=== PATIENT | male | born 1940 | race Caucasian/White ===

== ENCOUNTER → 2017-07-22 | Outpatient (CLI) | payer MEDICARE, OTHER ==
[~2017-07-22] MED LIST: ASP325 PO; ASPI-816 PO; ASPI81TA60 PO; ATOR40TA69 PO; BENA20TA62 PO; CAPS60CR TP; CARBATROL 200 MG; CHOL10005 PO; CYA1000 PO; DOCU-416 PO; DOXA2TAB58 PO; ESOM40CA42 PO; EZET1TAB81 PO; FLU IM; FLU180SY9 IM; FLU45SYR17 IM; FLU45SYR25 IM ONLY; FLU60VIA21 IM ONLY; GAB100 PO; GABA-503 PO; GABA-506 PO; GABA-547 PO; GABA-549 PO; GABA-551 PO; GLUC500C29 PO; HYDR-385 PO; LACT10SO82 PO; LOSA100T67 PO; LOSA50TA73 PO; MELO-207 PO; MESA400T PO; METO25TA93 PO; METO50TA19 PO; MULT1TAB64 PO; OMEG-36 PO; OXYC-865 PO; PANT40TA65 PO; PNEI IJ; PNEU0.5D3 IM; POLY500P2 PO; TAMS0.4C70 PO; TRAM-420 PO; TRI05T TOP; TRIA5T TOP; TRIA80OI13 TP; VAL250 PO; VALA100062 PO
[2017-07-22 09:58] LABS: PLATELET COUNT, AUTOMATED 205 K/uL (150-450)
== END ==
LOC: LAB 09:19
PROVIDERS: ATTEND Internal Medicine
DX: I12.9 Hypertensive chronic kidney disease with stage 1 through stage 4 chronic kidney disease, or unspecified chronic kidney disease (principal); I25.10 Atherosclerotic heart disease of native coronary artery without angina pectoris; N18.9 Chronic kidney disease, unspecified; D64.9 Anemia, unspecified; E78.00 Pure hypercholesterolemia, unspecified; E55.9 Vitamin D deficiency, unspecified; E53.8 Deficiency of other specified B group vitamins
CPT/HCPCS: 36415; 81001; 82040; 82247; 82306; 82310; 82374; 82435; 82565; 82607; 82728; 82746; 82947; 83540; 83550; 84075; 84132; 84155; 84295; 84443; 84450; 84460; 84520; 85025

== ENCOUNTER → 2017-10-24 | Outpatient (CLI) | payer MEDICARE, OTHER ==
[~2017-10-24] MED LIST changes: -ASPI-816 PO; +ASPI-870 PO; +DIPH0.5D12 IM; +METO25TA23 PO; +MOM PO
--- NOTE | 2017-10-24 09:39 | EKG ---
FACILITY: [facility] - [place] PATIENT NAME: BECCA SANTAMARIA : [id number] MR: [id number] V: [id number] EXAM DATE: ORDERING PHYSICIAN: NIURKA OZUNA TECHNOLOGIST: REN Test Reason : SOB Blood Pressure : / mmHG Vent. Rate : 047 BPM Atrial Rate : 047 BPM P-R Int : 194 ms QRS Dur : 144 ms QT Int : 474 ms P-R-T Axes : 076 -72 000 degrees QTc Int : 419 ms Sinus bradycardia Left axis deviation Right bundle branch block Abnormal ECG When compared with ECG of 19-MAY-2016 16:00, Previous ECG has undetermined rhythm, needs review T wave amplitude has decreased in Anterior leads Referred By: Confirmed By:
== END ==
LOC: RESP 09:27
PROVIDERS: ATTEND Internal Medicine
DX: I45.10 Unspecified right bundle-branch block (principal); R00.1 Bradycardia, unspecified

== ENCOUNTER → 2017-10-27 | Outpatient (CLI) | payer MEDICARE, OTHER ==
[2017-10-27 08:48] LABS: PLATELET COUNT, AUTOMATED 218 K/uL (150-450)
--- NOTE | 2017-10-27 10:00 | RADIOLOGY IMAGING REPORT ---
FACILITY: [facility] - [place] PATIENT NAME: Zeke Fowler : 1940 MR: [id number] V: [id number] EXAM DATE: ORDERING PHYSICIAN: NIURKA OZUNA TECHNOLOGIST: Location: [facility] - [place] Patient: Zeke Fowler : 1940 Visit/Account:[id number] Date of Sevice: 10/27/2017 Technique: CERVICAL SPINE 2 OR 3 VIEW HISTORY: neck pain Comparison studies: None FINDINGS: There is no acute fracture. Advanced degenerative changes are noted within the cervical sp ine most pronounced within the mid and lower cervical spine. These findings are characterized by int ervertebral disc space narrowing, endplate osteophytosis and sclerosis. The vertebral body heights a re maintained. No prevertebral soft tissue swelling. IMPRESSION: 1. Moderate to advanced degenerative changes within the cervical spine. Report Dictated By: Peter Day DO at 10/27/2017 9:54 AM Report E-Signed By: Peter Day DO at 10/27/2017 9:57 AM WSN:[email or web address]
== END ==
LOC: RAD 08:21
PROVIDERS: ATTEND Internal Medicine
DX: Z12.5 Encounter for screening for malignant neoplasm of prostate (principal); D64.9 Anemia, unspecified; I25.10 Atherosclerotic heart disease of native coronary artery without angina pectoris; I12.9 Hypertensive chronic kidney disease with stage 1 through stage 4 chronic kidney disease, or unspecified chronic kidney disease; N18.9 Chronic kidney disease, unspecified; M54.2 Cervicalgia; E78.00 Pure hypercholesterolemia, unspecified; E53.8 Deficiency of other specified B group vitamins; E55.9 Vitamin D deficiency, unspecified; M47.892 Other spondylosis, cervical region
CPT/HCPCS: 36415; 72040; 81001; 82607; 82728; 83540; 83550; 84443; 85025; G0103; 82040; 82247; 82310; 82374; 82435; 82465; 82565; 82947; 83718; 84075; 84132; 84153; 84155; 84295; 84450; 84460; 84478; 84520

== ENCOUNTER 2017-12-02 00:33 | Day surgery (SDC) | payer MEDICARE, OTHER ==
[2017-12-02] VITALS (7 sets, daily range): BP systolic 111–143; BP diastolic 68–87
[~2017-12-02] VITALS: Ht 175.3 cm; Wt 73.0 kg
[~2017-12-02 00:33] MED LIST changes: +HYDR30CR10 TP
[2017-12-02] MEDS ORDERED: NORMOSOL R SOLN(*) 1000 ML BAG 1,000 ML IV PRN (07:40)
[2017-12-02] MEDS ORDERED: LIDOCAINE/SOD BICARB 8.4% SYR ID ONE (07:40)
--- NOTE | 2017-12-02 07:40 | Post Operative Progress Note ---
Post Operative Progress Note Date: Dec 02, 2017 Time: 08:42 Surgeon: merritt Anesthesia: dr gutierrez Pre-Op Diagnosis: screening colonoscopy Post-Op Diagnosis: 1 cm polyp in cecum and sigmoid diverrticulosis Procedure(s): colonoscopy and polypectomy SOCORRO AGYLE MD Dec 02, 2017 07:40
--- NOTE | 2017-12-02 07:40 | Short(Outpt) Discharge Summary ---
Discharge Summary Reason for Hosp/Final Diag: (1) Encounter for screening colonoscopy Hospital Course & Plan: 1 cm polyp in cecum and sigmoid diverticulosis Departure Discharge to: Home Discharge Instructions Home Meds Active Scripts Metoprolol Succinate (METOPROLOL SUCCINATE) 25 Mg Tab.er.24h, 1 TAB PO QDAY, # 90 TAB 1 Refill Prov:NIURKA OZUNA MD 10/28/17 Oxycodone Hcl/Acetaminophen (PERCOCET 5-325 MG TABLET) 1 Each Tablet, 1 EACH PO QID Y for PAIN, #120 TAB REFILL ON OR AFTER Prov:NIURKA OZUNA MD 10/24/17 Atorvastatin Calcium (ATORVASTATIN CALCIUM) 40 Mg Tablet, 1 TAB PO QHS, #90 TAB 3 Refills TAKE ONE TABLET BY MOUTH ONCE A DAY AT BED TIME Prov:NIURKA OZUNA MD 07/31/17 Gabapentin (GABAPENTIN) 800 Mg Tablet, 0.5 TAB PO QDAY, #90 TAB Prov:NIURKA OZUNA MD 07/22/17 Triamcinolone Acetonide 0.025% (TRIAMCINOLONE ACETONIDE 0.025%) 15 Gm Cr, 1 EDWARD TOP BID Y for ezema, #3 TUBE 1 Refill Prov:NIURKA OZUNA MD 07/16/17 Doxazosin Mesylate (DOXAZOSIN MESYLATE) 2 Mg Tablet, 1 TAB PO QHS, #90 TAB 2 Refills Prov:NIURKA OZUNA MD 06/30/17 Losartan Potassium (LOSARTAN POTASSIUM) 100 Mg Tablet, 0.5 TAB PO QDAY, #90 TAB Prov:NIURKA OZUNA MD 04/10/17 Pantoprazole Sodium (PANTOPRAZOLE SODIUM) 40 Mg Tablet.dr, 1 TAB PO QDAY, #90 TAB.SR 1 Refill Prov:NIURKA OZUNA MD 11/26/16 Docusate Sodium (COLACE) 100 Mg Capsule, 1 CAP PO BID, #180 CAPSULE 4 Refills Prov:NIURKA OZUNA MD 10/09/16 Reported Medications Magnesium Hydroxide (MILK OF MAGNESIA) 400 Mg/5 Ml Oral.susp, 400 MG PO QDAY Y for constipation, BOTTLE 10/24/17 Cyanocobalamin (Vitamin B-12) (VITAMIN B-12) 1,000 Mcg Tablet, 1 TAB PO QDAY 08/14/15 Multivitamin (MULTI VITAMIN DAILY) 1 Each Tablet, 1 TAB PO QDAY 06/29/15 Aspirin (Children's Aspirin) 81 Mg Tab.chew, 1 TAB PO DAILY, #100 TAB 4 Refills 09/30/14 Cholecalciferol (Vitamin D3) (VITAMIN D3) 1,000 Unit Tablet, 1 TAB PO DAILY 02/08/14 Discontinued Scripts Hydrocortisone 2.5 % 30 GM CREAM (Hydrocortisone 2.5 % 30 GM CREAM) 2.5 % Cream.appl, 1 EDWARD TP BID for 30 Days, #1 TUBE 1 Refill Apply to face twice a day for 3-4 days when condition flares. Prov:SCOTT ALMEIDA NPC 10/30/17 Diet: High Fiber Activity: As Tolerated SOCORRO GAYLE MD Dec 02, 2017 07:40
[2017-12-02] MEDS ORDERED: GLYCOPYRROLATE 0.2MG/ML 1 ML INJ ONE (08:00)
[2017-12-02] MEDS ORDERED: LIDOCAINE MPF 1% 5 ML VIAL ONE (08:00)
[2017-12-02] MEDS ORDERED: PROPOFOL EMUL(*) 10MG/ML 20 ML 40 ML ONE (08:38)
--- NOTE | 2017-12-02 10:17 | NACHTIGAL COLONOSCOPY ---
EVENT DATE: December 02, 2017 SURGEON: Agustín Adler MD ANESTHESIOLOGIST: Dr. Gonzalez ANESTHESIA: IV Sedation RADIOLOGIC TECHNOLOGY INSTRUCTOR: Staff PREOPERATIVE DIAGNOSIS Screening colonoscopy. POSTOPERATIVE DIAGNOSIS 1 cm sessile cecal polyp and sigmoid diverticulosis. PROCEDURE PERFORMED Colonoscopy with polypectomy. DESCRIPTION OF PROCEDURE The patient was placed in the left lateral decubitus position and given intravenous sedation. The rectal examination was unremarkable The flexible colonoscope was inserted and advanced to the cecum. He had an excellent bowel prep. The ileocecal valve and base of the cecum were identified. In the cecum, he had a 1 cm sessile polyp. We first used a sclerotherapy needle to inject saline into the submucosa. We then used the snare to remove this in a couple of passes. We got good clearing of the polyp. It was then retrieved. We then slowly withdrew the scope. The rest of the right colon, transverse and descending colon were normal. He had a few diverticula in the sigmoid colon. No evidence of diverticulitis. No narrowing. The rectum was normal. The scope was retroflexed and that appeared to be normal. Patient will require repeat colonoscopy in five years because of the polyp. MTDElder
== END 2017-12-02 09:45 | disposition home or self-care (01) ==
LOC: OR 00:33
PROVIDERS: ATTEND Surgery
DX: Z12.11 Encounter for screening for malignant neoplasm of colon (principal); D12.0 Benign neoplasm of cecum; K57.30 Diverticulosis of large intestine without perforation or abscess without bleeding
CPT/HCPCS: 00811; 45385; 88305; J2001; J2704; J3490

== ENCOUNTER → 2018-04-08 | Outpatient (CLI) | payer MEDICARE, OTHER ==
[~2018-04-08] MED LIST changes: +FLU180SY11 IM; +LINA145C PO; -LOSA100T67 PO; +LOSA100T69 PO
[2018-04-08 08:55] LABS: PLATELET COUNT, AUTOMATED 212 K/uL (150-450)
== END ==
LOC: LAB 08:31
PROVIDERS: ATTEND Internal Medicine
DX: I25.10 Atherosclerotic heart disease of native coronary artery without angina pectoris (principal); I10 Essential (primary) hypertension; E78.5 Hyperlipidemia, unspecified
CPT/HCPCS: 36415; 82040; 82247; 82310; 82374; 82435; 82465; 82565; 82947; 83718; 84075; 84132; 84155; 84295; 84443; 84450; 84460; 84478; 84520; 85025

== ENCOUNTER → 2018-07-02 | Outpatient (CLI) | payer MEDICARE, OTHER ==
[~2018-07-02] MED LIST changes: -GABA-503 PO; -GABA-506 PO; +GABA-533 PO; +GABA-535 PO; -LOSA100T69 PO; +LOSA100T75 PO
== END ==
LOC: LAB 08:28
PROVIDERS: ATTEND Internal Medicine
DX: M54.2 Cervicalgia (principal); G89.29 Other chronic pain
CPT/HCPCS: 80305

== ENCOUNTER → 2018-07-17 | Outpatient (CLI) | payer MEDICARE, OTHER | LOC: LAB 10:18 | PROVIDERS: ATTEND Nurse Practitioner | DX: D04.39 Carcinoma in situ of skin of other parts of face (principal) | CPT/HCPCS: 88305 ==

== ENCOUNTER → 2018-12-11 | Outpatient (CLI) | payer MEDICARE, OTHER ==
[~2018-12-11] MED LIST changes: -DIPH0.5D12 IM; +DIPH0.5S2 IM
[2018-12-11 10:53] LABS: PLATELET COUNT, AUTOMATED 223 K/uL (150-450)
== END ==
LOC: LAB 10:34
PROVIDERS: ATTEND Internal Medicine
DX: G89.29 Other chronic pain (principal); E78.5 Hyperlipidemia, unspecified; I10 Essential (primary) hypertension; I25.10 Atherosclerotic heart disease of native coronary artery without angina pectoris; E53.8 Deficiency of other specified B group vitamins
CPT/HCPCS: 36415; 81001; 82040; 82247; 82310; 82374; 82435; 82465; 82565; 82607; 82947; 83718; 84075; 84132; 84155; 84295; 84443; 84450; 84460; 84478; 84520; 85025